=== PATIENT | female | born 1955 | race Caucasian/White ===

== ENCOUNTER 2020-06-12 12:19 | Emergency (ER) | payer MEDICARE, SELFPAY ==
[2020-06-12 12:30] VITALS: BP 118/67; PULSE 90; RESP 18; TEMP 36.6; O2SAT 97
--- NOTE | 2020-06-12 12:57 | ED.GENADULT ---
HPI - General Adult General Chief complaint: Urogenital-Female Stated complaint: Urogenital-Female Time Seen by Provider: 06/12/20 12:55 Source: patient and RN notes reviewed Mode of arrival: ambulatory Limitations: no limitations History of Present Illness HPI narrative: 65-year-old female presents with urinary complaints for the past 2 days. Dysuria consist of burning, frequency, and urgency.? Bekah reports increase symptoms of decrease urine with frequency, urgency, and burning over the past 24 hours. No treatment.? History of bladder tack on 03/23/20 and numerous UTIs. Denies fever or chills. No significant pelvic pain. No vaginal discharge.? No concerns for STDs. Exacerbating factors urinating.? Denies hematuria or vaginal bleeding. LMP hysterectomy. No flank pain. Denies nausea, vomiting, and abdominal pain.? Tolerating liquids well.? Remains active. The patient reports she have not been diagnosed with COVID-19. The patient reports she is not waiting for the results of a COVID-19 lab test. The patient reports she do not have weakness or fatigue. The patient reports she do not have a new or worsening cough or shortness of breath. Denies chest pain. The patient reports she do not have any rhinorrhea, congestion, sore throat, loss of taste, and diarrhea. Denies recent traveling. Denies concerns for COVID-19 or exposures been home with limited outdoor exposure except for essential household needs and return home. At this time, patient is not suspected of having COVID-19. Some parts of this dictation were generated by voice recognition software and may contain typographical and/or grammatical inaccuracies. Related Data Home Medications Medication Instructions Recorded Confirmed metformin 500 mg PO DAILY 06/12/20 06/12/20 simvastatin 20 mg PO DAILY 06/12/20 06/12/20 Allergies Allergy/AdvReac Type Severity Reaction Status Date / Time sulfamethoxazole AdvReac Nausea Verified 06/12/20 13:07 [From Bactrim] trimethoprim [From Bactrim] AdvReac Nausea Verified 06/12/20 13:07 Contrast Media Allergy Unknown Unknown Uncoded 06/12/20 12:40 Review of Systems Review of Systems: Narrative: CONSTITUTIONAL: Denies fever, chills, sweats. EYES: Denies visual changes, redness, discharge. ENT: Denies rhinorrhea, congestion, sore throat, otalgia. CARDIOVASCULAR: Denies chest pain, palpitations, edema. RESPIRATORY: Denies dyspnea, wheezing, cough. GASTROINTESTINAL: Denies abdominal pain, nausea, vomiting, diarrhea. GENITOURINARY: Complains of dysuria (burning, frequency, and urgency). Denies hematuria, abnormal discharge. SKIN: Denies rash or itching. MUSCULOSKELETAL: Denies acute back pain, joint pain, or myalgia. NEUROLOGIC: Denies numbness or focal weakness. PSYCHIATRIC: Denies anxiety or depression. All systems reviewed & are unremarkable except as noted in HPI and below. [facility] Past Medical History Medical History (Updated 06/13/20 @ 00:00 by [facility] Micah) Diabetes mellitus type 2 in obese History of gastroesophageal reflux (GERD) Hypercholesteremia Mitral valve prolapse Ovarian cyst Urinary tract bacterial infections Surgical History Surgical History (Updated 06/12/20 @ 13:14 by MARIJA Downing) History of bladder suspension procedure 03/23/2020 History of cholecystectomy History of hysterectomy History of knee surgery Left History of tubal ligation Family History Family History (Updated 06/12/20 @ 13:15 by MARIJA Downing) Father Alive and well Mother , Lung and kidney cancer Lung cancer Social History Social History (Updated 06/12/20 @ 13:15 by MARIJA Downing) Smoking status: Former smoker Tobacco type: cigarettes Second hand tobacco smoke exposure: No Smoking end date: 01/16/20 Alcohol intake: current Alcohol use details: occasional Substance use: never Living arrangements: with family Occupation/Education: retired Gender
== END 2020-06-12 13:10 | disposition home or self-care (01) ==
PROVIDERS: Emergency Provider Nurse Practitioner Family; PCP Nurse Practitioner Family
DX: R30.0 Dysuria (principal); Z87.891 Personal history of nicotine dependence; E11.9 Type 2 diabetes mellitus without complications; K21.9 Gastro-esophageal reflux disease without esophagitis; E78.00 Pure hypercholesterolemia, unspecified; I34.1 Nonrheumatic mitral (valve) prolapse
CPT/HCPCS: 81003; 87077; 87086; 87088; 87186; 99213; G0463

== ENCOUNTER 2021-12-27 14:59 | Emergency (ER) | payer MEDICARE, SELFPAY ==
--- NOTE | ~2021-12-27 | XR_ITS ---
EXAMINATION: XR chest 2V Exam Date/Time: 12/27/2021 16:25 CDT HISTORY: INCREASING SOB X 2 WEEKS Comparison: None available. RESULT: Lines, tubes, and devices: Cholestatic clips. Lungs and pleura: Diffuse reticulonodular opacities, likely with a component of senescent change. Bi basilar scar/atelectasis. Cardiomediastinal silhouette: Stable cardiomediastinal silhouette. Other: No acute osseous or upper abdominal finding. IMPRESSION: Pulmonary opacities may represent bronchiolitis, as can be seen with atypical infection, asthma, aspi ration, and small airways disease.. Reviewed, dictated and finalized at location K. IMPRESSION: Pulmonary opacities may represent bronchiolitis, as can be seen with atypical i nfection, asthma, aspiration, and small airways disease..
[2021-12-27 15:40] VITALS: BP 140/84; PULSE 99; RESP 20; TEMP 37.1; O2SAT 95
--- NOTE | 2021-12-27 16:24 | ED.GENADULT ---
HPI - General Adult General Chief complaint: Upper Respiratory Infection Stated complaint: Coughing, ear pain Source: patient Mode of arrival: ambulatory Limitations: no limitations History of Present Illness HPI narrative: Patient presents for evaluation of respiratory symptoms for the last week. Symptoms include shortness of breath, chest tightness, occasional nonproductive cough. She further endorses right-sided ear pain. She denies fever, nausea, vomiting, diarrhea, sore throat, left-sided otalgia. No recent sick contacts to her knowledge. She had COVID in May 2021. She received Moderna COVID vaccination in 2 boosters. She tried taking Mucinex which seemed to make her symptoms worse. She also tried taking some cold and cold medication. She has about a 20 pack year hx of smoking. She quit two years ago. No formal diagnosis of COPD or asthma. She believes her symptoms are 2/2 Gemtesa as package insert indicates that use can cause respiratory infections. Related Data Home Medications Medication Instructions Recorded Confirmed metformin 500 mg tablet mg 12/27/21 nitrofurantoin macrocrystal 50 mg mg 12/27/21 capsule simvastatin 20 mg tablet mg 12/27/21 vibegron 75 mg tablet (Gemtesa) mg 12/27/21 Allergies Allergy/AdvReac Type Severity Reaction Status Date / Time sulfamethoxazole AdvReac Nausea Verified 12/27/21 16:18 [From Bactrim] trimethoprim [From Bactrim] AdvReac Nausea Verified 12/27/21 16:18 Contrast Media Allergy Unknown Unknown Uncoded 12/27/21 16:18 Review of Systems Review of Systems: CONSTITUTIONAL: Denies fever, chills, or sweats. EYES: Denies visual changes, redness, or discharge. ENT: Denies rhinorrhea, congestion, sore throat, or otalgia. CARDIOVASCULAR: Denies chest pain, palpitations, or edema. RESPIRATORY: Reports shortness of breath, chest tightness, occasional nonproductive cough. GASTROINTESTINAL: Denies abdominal pain, nausea, vomiting, or diarrhea. GENITOURINARY: Denies dysuria or hematuria. SKIN: Denies rash or itching. MUSCULOSKELETAL: Denies back pain, joint pain, or myalgia. NEUROLOGIC: Denies headache, numbness, dizziness, or weakness. PSYCHIATRIC: Denies anxiety or depression. [facility] Past Medical History Medical History (Updated 12/27/21 @ 17:07 by ASTRID LewisP, ) Diabetes mellitus type 2 in obese History of gastroesophageal reflux (GERD) Hypercholesteremia Mitral valve prolapse Ovarian cyst Urinary tract bacterial infections Surgical History Surgical History History of bladder suspension procedure 03/23/2020 History of cholecystectomy History of hysterectomy History of knee surgery Left History of oophorectomy History of tubal ligation Family History Family History Father Alive and well Mother , Lung and kidney cancer Lung cancer Social History Social History (Updated 12/27/21 @ 16:27 by Lazaro Gomez [facility], ) Smoking packs per day: 20 Smoking cigarettes per day: 400.0 Smoking status: Former smoker Tobacco type: cigarettes Second hand tobacco smoke exposure: No Smoking end date: 01/16/20 Alcohol intake: current Alcohol use details: occasional Substance use: never Gender identity (if verbalized by the patient): Female Sexual Orientation (if Verbalized by the Patient): Straight or Heterosexual Exam Narrative: GENERAL: Well-appearing, well-nourished, and in no acute distress. HEAD: Normocephalic, atraumatic. EYES: PERRLA and EOMI. ENT: Nares clear, no rhinorrhea or epistaxis. Mucous membranes moist. Oropharynx without tonsillar hypertrophy exudate or other lesions. Bilateral TMs pearly peraza nonbulging NECK: Supple. No adenopathy or masses. No carotid bruits or JVD CHEST: Clear to auscultation. Occasional cough noted. No respiratory distress. No wheezes rales or rhon
== END 2021-12-27 17:12 | disposition home or self-care (01) ==
PROVIDERS: Emergency Provider Nurse Practitioner
DX: J18.9 Pneumonia, unspecified organism (principal); Z20.822 Contact with and (suspected) exposure to COVID-19; Z87.891 Personal history of nicotine dependence; K21.9 Gastro-esophageal reflux disease without esophagitis; E78.00 Pure hypercholesterolemia, unspecified; I34.1 Nonrheumatic mitral (valve) prolapse; E11.9 Type 2 diabetes mellitus without complications
CPT/HCPCS: 71046; 87081; 87426; 87804; 99213; C9803; G0463

== ENCOUNTER 2022-01-27 09:08 | Outpatient (CLI) | payer MEDICARE, SELFPAY ==
--- NOTE | 2022-01-27 09:30 | ECG_ITS ---
Measurements Intervals [place] Rate: 87 P: 26 DE: 154 QRS: -73 QRSD: 101 T: 32 QT: 350 QTc: 421 Interpretive Statements SINUS RHYTHM LOW QRS VOLTAGE IN PRECORDIAL LEADS [QRS DEFLECTION < 1.0 mV IN CHEST LEADS] RV CONDUCTION ABNORMALITY LEFT ANTERIOR FASCICULAR BLOCK [QRS AXIS <= -45, QR IN I, RS IN II] NO PREVIOUS ECG AVAILABLE FOR COMPARISON Electronically Signed On 01-27-2022 12:03:29 CDT by Mainor Titus M.D.
[2022-01-27 10:10] LABS: Anion Gap 11 mmol/L (8-16); Blood Urea Nitrogen 11 mg/dL (7-17); Calcium 9.7 mg/dL (8.4-10.2); Carbon Dioxide 21 mmol/L (22-30); Chloride 100 mmol/L (98-107); Estimated Glomerular Filt Rate > 60; Glucose 97 mg/dL (65-110); Potassium 4.3 mmol/L (3.4-5.0); Sodium 132 mmol/L (137-145)
== END 2022-01-27 09:09 | disposition home or self-care (01) ==
LOC: ANHSURGERY 09:16
PROVIDERS: Anesthesiology; Visit Provider Urology
DX: E78.00 Pure hypercholesterolemia, unspecified (principal); E11.9 Type 2 diabetes mellitus without complications; Z01.818 Encounter for other preprocedural examination; I45.9 Conduction disorder, unspecified; I44.4 Left anterior fascicular block
CPT/HCPCS: 36415; 80048; 87077; 87086; 87186; 93005

== ENCOUNTER 2022-02-03 00:39 | Day surgery (SDC) | payer MEDICARE, SELFPAY ==
--- NOTE | 2022-01-20 10:21 | PM.IMHP ---
H&P: HPI History of Present Illness Date/Time: 01/20/22 10:21 Chief Complaint: Vaginal bulge, incontinence Narrative: Recurrent pelvic organ prolapse. Previous cystocele repair. No longer satisfied with pessary. Stress incontinence due to intrinsic sphincter deficiency Review of Systems Review of Systems: All systems reviewed & are unremarkable except as noted in HPI and below PMFSH Past Medical History Medical History Diabetes mellitus type 2 in obese History of gastroesophageal reflux (GERD) Hypercholesteremia Mitral valve prolapse Ovarian cyst Urinary tract bacterial infections Surgical History Surgical History History of bladder suspension procedure 03/23/2020 History of cholecystectomy History of hysterectomy History of knee surgery Left History of oophorectomy History of tubal ligation Family History Family History Father Alive and well Mother , Lung and kidney cancer Lung cancer Social History Social History Smoking packs per day: 20 Smoking cigarettes per day: 400.0 Smoking status: Former smoker Tobacco type: cigarettes Second hand tobacco smoke exposure: No Smoking end date: 01/16/20 Alcohol intake: current Alcohol use details: occasional Substance use: never Gender identity (if verbalized by the patient): Female Sexual Orientation (if Verbalized by the Patient): Straight or Heterosexual Meds Home Medications and Allergies Home Medications Medication Instructions Recorded Confirmed Type albuterol sulfate 90 mcg/actuation 2 inh inhalation Q4-6H PRN 12/27/21 Rx breath activated powder shortness of breath #1 ea inhaler,sensor (Proair Digihaler) amoxicillin 875 mg-potassium 1 tablet PO Q12H #20 tabs 12/27/21 Rx clavulanate 125 mg tablet azithromycin 250 mg tablet See Rx Instructions PO .COMPLEX #6 12/27/21 Rx tabs metformin 500 mg tablet mg 12/27/21 History nitrofurantoin macrocrystal 50 mg mg 12/27/21 History capsule simvastatin 20 mg tablet mg 12/27/21 History vibegron 75 mg tablet (Gemtesa) mg 12/27/21 History Allergies Allergy/AdvReac Type Severity Reaction Status Date / Time sulfamethoxazole AdvReac Nausea Verified 12/27/21 16:18 [From Bactrim] trimethoprim [From Bactrim] AdvReac Nausea Verified 12/27/21 16:18 Contrast Media Allergy Unknown Unknown Uncoded 12/27/21 16:18 Exam Narrative: Cystocele to introitus Vaginal foreshortening Fixed urethra Assessment and Plan Assessment and plan (1) Cystocele: Status: Acute Assessment and Plan: No longer satisfied with pessary. Desires cystocele repair. Understands risks of bleeding, infection, damage to the bladder urinary tract, recurrence, dyspareunia, voiding dysfunction. Agrees to proceed (2) Intrinsic sphincter deficiency (ISD): Code(s): N36.42 - Intrinsic sphincter deficiency (ISD) Status: Acute Assessment and Plan: Will plan on injection of bulking agent. Understands the risks of bleeding, infection, lack of efficacy, retention, need for repeat procedures
--- NOTE | 2022-01-24 14:17 | PC.NURSE ---
Report to the Outpatient Waiting Room, entrance under the green pavilion located off [facility], at time _0800 on date _02/03/22 . OR Time: ___1000 . - You and your visitor will be asked to self-screen and do not enter if you have any COVID symptoms. - Only one visitor and NO children visitors are allowed at this time. - The patient visitor is requested to leave or wait in car when not with patient due to restrictions. - A mask is required within the hospital. Patients may have clear liquids (water, carbonated beverages, clear teas, apple juice) until 3 hours prior to surgery with a maximum of 20 ounces. - No food from midnight until time of surgery - Infants may have breast milk until 4 hours before surgery, infant formula 6 hours prior to surgery. - Children will be allowed to drink immediately following surgery. If applicable, please bring a bottle or sippy cup to assist with drinking. Juice, water, soda, and popsicles are readily available. For infants on formula, please bring formula the day of surgery. Pacifiers are allowed. Take the following medications with a SIP of water the morning of surgery: ___INHALER IF NEEDED Medications to discontinue per physician ____ALL VITAMINS AND SUPPLEMENTS 3 DAYS PRE OP Date to take last dose____01/30/22 Please no make-up, nail guatemalan, hairspray, perfume, deodorant, or body powder the day of surgery. No jewelry (including any body piercings) or valuables the day of surgery, leave them at home. Please take a shower or bath the night before, or the morning of, surgery with an antibacterial soap. Wear comfortable, loose fitting clothing. Children are encouraged to wear pajamas. - Jewelry must be removed prior to entering the operating room. Rings and piercings that are not removed may be cut off. - The hospital will not accept responsibility for valuables. - Please leave all valuables, including medications, at home the day of surgery. If you are going home after surgery, a licensed driver helper must drive you home. - NO public transportation without another adult. - We recommend that an adult stay with you for 24 hours following discharge. - We also recommend that you do not drive, make important decision, drink alcoholic beverages, or take any drugs that were not prescribed by your health care provider for at least 24 hours after your discharge time. For Pediatric surgeries, we recommend two adults accompany the child home (only one inside the building at this time). Follow any additional instructions given to you from your surgeon. If you or anyone in your household have experienced Covid symptoms in the past week, please notify your surgeon or the nurse liaison at the phone number below for possible testing. Telephone instructions given to ___PATIENT and asked if any additional questions and then verbalized understanding. Patient advised to call surgeon office or pre surgery nurse liaison [phone] if any additional questions.
[2022-01-24 14:33] VITALS: BMI 29.8
--- NOTE | 2022-02-02 14:03 | WPDANESEPPF ---
Anes - Initial Pre Proc Eval Procedure: Operation Date: 02/03/22 09:45 Proposed Procedures p Cystocele Repair with Bulkamid Injection - Rodolfo Roa MD Date/Time: 02/02/22 14:03 Surgeon: Rodolfo Roa MD Pre Op Diagnosis: Cystocele, Intrinsic Sphincter Deficiency Patient Data Age: 67 Gender: F Height: 1.68 m Weight: 83.95 kg Allergies Allergy/AdvReac Type Severity Reaction Status Date / Time sulfamethoxazole AdvReac Intermediate Nausea Verified 02/03/22 08:27 [From Bactrim] trimethoprim [From Bactrim] AdvReac Intermediate Nausea Verified 02/03/22 08:27 Contrast Media Allergy Intermediate Rash Uncoded 02/03/22 08:27 Home Medications Medication Instructions Recorded Confirmed Type albuterol sulfate 90 mcg/actuation 2 inh inhalation Q4-6H PRN 12/27/21 02/03/22 Rx breath activated powder shortness of breath #1 ea inhaler,sensor (Proair Digihaler) metformin 500 mg tablet 500 mg PO DAILY 12/27/21 02/03/22 History nitrofurantoin macrocrystal 50 mg 50 mg PO EVERY OTHER DAY 12/27/21 01/24/22 History capsule simvastatin 20 mg tablet 20 mg PO DAILY 12/27/21 02/03/22 History acetaminophen 500 mg capsule 500 mg PO Q6H PRN Pain 01/24/22 02/03/22 History ascorbic acid (vitamin C) 100 mg 100 mg PO BID 01/24/22 02/03/22 History tablet calcium carbonate 600 mg-vitamin 1 tablet PO DAILY 01/24/22 02/03/22 History D3 10 mcg (400 unit) tablet (Calcium 600 + D(3)) promethazine-DM 6.25 mg-15 mg/5 mL 5 ml PO TID 01/24/22 02/03/22 History oral syrup Patient hx anesthesia problems: none Family hx anesthesia problems: none Results Review: All pre-operative results and documents have been reviewed as part of the pre-operative evaluation. [facility] Past Medical History Medical History (Updated 02/02/22 @ 14:04 by Peewee Cote MD) Diabetes mellitus type 2 in obese History of gastroesophageal reflux (GERD) Hypercholesteremia Mitral valve prolapse Obesity Ovarian cyst Urinary tract bacterial infections Surgical History Surgical History History of bladder suspension procedure 03/23/2020 History of cholecystectomy History of hysterectomy History of knee surgery Left History of oophorectomy History of tubal ligation Family History Family History Father Alive and well Mother , Lung and kidney cancer Lung cancer Social History Social History Smoking packs per day: 0.5 Smoking cigarettes per day: 10.0 Years smoked: 25 Smoking pack-years: 12.50 Smoking status: Former smoker Tobacco type: cigarettes Second hand tobacco smoke exposure: No Smoking end date: 01/16/20 Alcohol intake: current Alcohol use details: occasional Substance use: never Living arrangements: alone Gender identity (if verbalized by the patient): Female Sexual Orientation (if Verbalized by the Patient): Straight or Heterosexual Spiritual care concerns: No Anes - Eval Final PreProcedure Day of Procedure 02/02/22 14:03 Patient weight: obese Heart: regular rate and rhythm Lungs: clear to auscultation and normal air movement Airway: Mallampati scale class II Neurological: alert and oriented Last oral intake: >/= 8 hours ASA classification: III Emergent: no Anesthetic plan: proceed Anesthesia type and monitoring: general LMA Results Review: All pre-operative results and documents have been reviewed as part of the pre-operative evaluation. Informed Consent: The patient's anesthetic plan and its attendant risks and benefits were discussed with the patient/family/POA. Questions were solicited and answers provided to the satisfaction of the patient/family/POA.
[2022-02-03] VITALS (9 sets, daily range): BP systolic 115–155; BP diastolic 51–82; PULSE 82–100; RESP 15–21; TEMP 36.6–36.9; O2SAT 93–100
--- NOTE | 2022-02-03 07:14 | WPDHPUPDATE1 ---
History and Physical Update Update Date/Time: 02/03/22 07:14 History and Physical has been reviewed, including an updated exam of the patient. There are NO changes in the patient's condition. Risks, benefits, and alternatives have been discussed and questions answered. Patient agrees to proceed with procedure.
[2022-02-03 08:43] LABS: Glucose Point of Care 112 mg/dl (65-105)
[2022-02-03] MEDS: LACTATED RINGERS 1,000 ML 30 ML IV CONT ×2 (08:43→11:11)
[2022-02-03] MEDS: ceFAZolin 2 GM/D5W 50 ML 2 GM/50 ML BAG IVPB (09:39)
[2022-02-03] MEDS: BUPIVACAINE/EPINEPHRINE 0.25% 50 ML VIAL 30 ML INFILTRATE (10:09)
[2022-02-03 10:48] LABS: Glucose Point of Care 111 mg/dl (65-105)
--- NOTE | 2022-02-03 10:58 | P.OP_ITS ---
Procedure Note - Detailed Date of Procedure 02/03/22 Pre-op Diagnosis Cystocele, Intrinsic Sphincter Deficiency Post-op Diagnosis Same Procedure Performed Cystocele repair Injection of urethral bulking material Surgeon Rodolfo Roa MD Anesthesia General Indications This 1 recurrent cystocele after previous prolapse surgery. She also has a fixed urethra and stress incontinence. She presents for a cystocele repair. She understands risks of bleeding, infection, damage to the urinary tract, recurrence of prolapse, persistent or recurrent stress incontinence, obstructive voiding, dyspareunia. She agrees to proceed Findings Cystocele to the introitus. Significant scarring of sub urethra and anterior vaginal wall Description of Procedure He has correctly identified. Informed consent obtained. She from the operating room. She was given general anesthesia. She was placed in dorsal thigh position. She was prepped and draped in a sterile fashion. Time-out performed. I placed a [place] retractor. I placed a Flores catheter. She had a cystocele to the introitus. She had a fixed urethra. There was significant scarring. I grasped the cystocele with Allis clamps. I infiltrated subcutaneou s tissues with local. I made a midline vaginal incision. I dissected the mucosa off the underlying fascial layers. I did this laterally then back to the apex. I then performed a standard plication cystocele repair using 0 Vicryl suture. This reduced the cystocele. I took great care not to injure the bladder. I then cut excess vaginal mucosa. I closed the vaginal [place] with a running 2 0 Vicryl suture. There was good support to the cystocele. There is no significant rectocele. I then performed cystoscopy. She had mild trabeculations. There is no surgical artifact in the bladder urethra there is no sign of any bladder injury. Both ureters were seen to excrete clear yellow urine. There were no tumors or other abnormalities in the bladder. I then turned my attention to the bulking agent. Again she had significant scarring to urethra. I chose an area 2 cm proximal to the bladder neck. I injected the bulking agent circumferentially forming 5-6 pillows. I used 1-1/2 syringe. There was good bulking effect, but the tissues were scarred and did have some resistance to excepting the bulking material Her bladder was left partially full. She was awakened and transferred to the PACU in stable condition Estimated Blood Loss 10 Drains No Packing No Pathology None sent Complications No immediate complications Condition Stable Disposition PACU
[2022-02-03] MEDS: oxyCODONE HCL (*CRX) 5 MG TAB IR PO (12:36)
--- NOTE | 2022-02-03 13:53 | SUR.PHASEII ---
1230 VOIDED X 1.
== END 2022-02-03 13:10 | disposition home or self-care (01) ==
PROVIDERS: Visit Provider Urology
PROC: (CPT 57240; principal; 2022-02-03 09:45)
DX: N36.42 Intrinsic sphincter deficiency (ISD) (principal); N39.3 Stress incontinence (female) (male); N81.10 Cystocele, unspecified; E11.9 Type 2 diabetes mellitus without complications; K21.9 Gastro-esophageal reflux disease without esophagitis; E78.00 Pure hypercholesterolemia, unspecified; E66.9 Obesity, unspecified; Z68.30 Body mass index [BMI] 30.0-30.9, adult
CPT/HCPCS: 51715; 57240; 36415; 80048; 82948; 87077; 87086; 87186; 93005; A9270; J0690; J2250; J2405; J2704; J3010; J7030; J7120; L8606

== ENCOUNTER 2022-06-05 09:45 | Emergency (ER) | payer MEDICARE, SELFPAY ==
--- NOTE | ~2022-06-05 | XR_ITS ---
EXAMINATION: XR chest 2V DATE: 06/05/2022 11:49 INDICATION: Bibasilar crackles TECHNIQUE: frontal and lateral views of the chest were obtained. COMPARISON: Chest radiograph dated 12/27/2021 and 09/29/2017 FINDINGS: Similar pattern of airspace opacities in the bilateral lower lung zones due to significant part to pr ominent anterior pericardial fat pads. There are also coarse reticular mild patchy airspace opacities along both lung bases with relatively similar appearance. No pleural effusion or pneumothorax. Borde rline heart size accounting for AP technique. Mild thoracic levoscoliosis with mild spondylosis. IMPRESSION: 1. Relatively stable appearance of interstitial and airspace opacities in the bilateral lower lung zo iman most likely either atelectasis/scarring or other chronic interstitial lung disease. Difficult to exclude superimposed pulmonary edema or pneumonia. Reviewed, dictated and finalized at location A. [employer]ING [employer]INTAINER IMPRESSION: 1. Relatively stable appearance of interstitial and airspace opacities in the b ilateral lower lung zones most likely either atelectasis/scarring or other orchestrator abe interstitial lung disease. Difficult to exclude superimposed pulmonary sada a or pneumonia.
[2022-06-05 09:54] VITALS: BP 95/53; PULSE 90; RESP 24; TEMP 35.8; O2SAT 95
--- NOTE | 2022-06-05 12:02 | ED.GENADULT ---
HPI - General Adult General Chief complaint: Upper Respiratory Infection Stated complaint: cold flu Time Seen by Provider: 06/05/22 11:32 Source: patient, RN notes reviewed and old records reviewed Mode of arrival: ambulatory Limitations: no limitations History of Present Illness HPI narrative: 67-year-old female presents to [facility] with complaints of cough, congestion for the past 5 days with some shortness of breath. Patient denies any fever has been taking Delsym, Mucinex, Advil cold and Sinus for her symptoms. Patient reports she has had flu shot and COVID vaccinations and has also her pneumo shot. Patient does have an inhaler at home which she has been using for the shortness of breath. MD complaint: cough, shortness of breath, congestion Onset (ago): day(s) (5) Treatments prior to arrival: other (Delsym, Mucinex, Advil cold and sinus and inhaler) Related Data Home Medications Medication Instructions Recorded Confirmed metformin 500 mg tablet 500 mg PO DAILY 12/27/21 02/03/22 simvastatin 20 mg tablet 20 mg PO DAILY 12/27/21 02/03/22 acetaminophen 500 mg capsule 500 mg PO Q6H PRN Pain 01/24/22 02/03/22 ascorbic acid (vitamin C) 100 mg 100 mg PO BID 01/24/22 02/03/22 tablet calcium carbonate 600 mg-vitamin 1 tablet PO DAILY 01/24/22 02/03/22 D3 10 mcg (400 unit) tablet (Calcium 600 + D(3)) promethazine-DM 6.25 mg-15 mg/5 mL 5 ml PO TID 01/24/22 02/03/22 oral syrup metoprolol succinate 25 mg mg PO 06/05/22 tablet,extended release 24 hr Allergies Allergy/AdvReac Type Severity Reaction Status Date / Time sulfamethoxazole AdvReac Intermediate Nausea Verified 02/03/22 08:27 [From Bactrim] trimethoprim [From Bactrim] AdvReac Intermediate Nausea Verified 02/03/22 08:27 Contrast Media Allergy Intermediate Rash Uncoded 02/03/22 08:27 Review of Systems Review of Systems: CONSTITUTIONAL: Denies fever, chills, or sweats. EYES: Denies visual changes, redness, or discharge. ENT: Reports some rhinorrhea, congestion,no sore throat, or otalgia. CARDIOVASCULAR: Denies chest pain, palpitations, or edema. RESPIRATORY: Reports cough and some dyspnea. GASTROINTESTINAL: Denies abdominal pain, nausea, vomiting, or diarrhea. GENITOURINARY: Denies dysuria or hematuria. SKIN: Denies rash or itching. MUSCULOSKELETAL: Denies back pain, joint pain, or myalgia. NEUROLOGIC: Denies headache, numbness, or weakness. PSYCHIATRIC: Denies anxiety or depression. All systems reviewed & are unremarkable except as noted in HPI and below PMFSH Past Medical History Medical History Diabetes mellitus type 2 in obese History of gastroesophageal reflux (GERD) Hypercholesteremia Mitral valve prolapse Obesity Ovarian cyst Urinary tract bacterial infections Surgical History Surgical History History of bladder suspension procedure 03/23/2020 History of cholecystectomy History of hysterectomy History of knee surgery Left History of oophorectomy History of tubal ligation Family History Family History Father Alive and well Mother , Lung and kidney cancer Lung cancer Social History Social History Smoking packs per day: 0.5 Smoking cigarettes per day: 10.0 Years smoked: 25 Smoking pack-years: 12.50 Smoking status: Former smoker Tobacco type: cigarettes Second hand tobacco smoke exposure: No Smoking end date: 01/16/20 Alcohol intake: current Alcohol use details: occasional Substance use: never Gender identity (if verbalized by the patient): Female Sexual Orientation (if Verbalized by the Patient): Straight or Heterosexual Spiritual care concerns: No Comments At time of signature, agree with nursing past medical, surgical, social and family history. There is no relev
--- NOTE | 2022-06-05 12:12 | ED.URI ---
HPI - URI/Sore Throat General Chief Complaint: Upper Respiratory Infection Stated Complaint: cold flu Time Seen by Provider: 06/05/22 11:32 Source: patient, RN notes reviewed and old records reviewed Mode of arrival: ambulatory Limitations: no limitations History of Present Illness HPI Narrative: 67-year-old female [facility] with complaints of cough, congestion for the past 4 days with some shortness of breath, patient denies any fever has been taking Delsym Mucinex Advil cold and Sinus and patient reports she has had flu shot and COVID vaccinations and has also her shot does have an inhaler at home which she has been using for the usual MD elicited complaint: cough, rhinorrhea and nasal congestion Related Data Home Medications Medication Instructions Recorded Confirmed metformin 500 mg tablet 500 mg PO DAILY 12/27/21 02/03/22 simvastatin 20 mg tablet 20 mg PO DAILY 12/27/21 02/03/22 acetaminophen 500 mg capsule 500 mg PO Q6H PRN Pain 01/24/22 02/03/22 ascorbic acid (vitamin C) 100 mg 100 mg PO BID 01/24/22 02/03/22 tablet calcium carbonate 600 mg-vitamin 1 tablet PO DAILY 01/24/22 02/03/22 D3 10 mcg (400 unit) tablet (Calcium 600 + D(3)) promethazine-DM 6.25 mg-15 mg/5 mL 5 ml PO TID 01/24/22 02/03/22 oral syrup metoprolol succinate 25 mg mg PO 06/05/22 tablet,extended release 24 hr Allergies Allergy/AdvReac Type Severity Reaction Status Date / Time sulfamethoxazole AdvReac Intermediate Nausea Verified 02/03/22 08:27 [From Bactrim] trimethoprim [From Bactrim] AdvReac Intermediate Nausea Verified 02/03/22 08:27 Contrast Media Allergy Intermediate Rash Uncoded 02/03/22 08:27 [facility] Past Medical History Medical History Diabetes mellitus type 2 in obese History of gastroesophageal reflux (GERD) Hypercholesteremia Mitral valve prolapse Obesity Ovarian cyst Urinary tract bacterial infections Surgical History Surgical History History of bladder suspension procedure 03/23/2020 History of cholecystectomy History of hysterectomy History of knee surgery Left History of oophorectomy History of tubal ligation Family History Family History Father Alive and well Mother , Lung and kidney cancer Lung cancer Social History Social History Smoking packs per day: 0.5 Smoking cigarettes per day: 10.0 Years smoked: 25 Smoking pack-years: 12.50 Smoking status: Former smoker Tobacco type: cigarettes Second hand tobacco smoke exposure: No Smoking end date: 01/16/20 Alcohol intake: current Alcohol use details: occasional Substance use: never Gender identity (if verbalized by the patient): Female Sexual Orientation (if Verbalized by the Patient): Straight or Heterosexual Spiritual care concerns: No Course Vital Signs Vital signs: Vital Signs Temperature 35.8 C L 06/05/22 09:54 Pulse Rate 90 06/05/22 09:54 Respiratory Rate 24 H 06/05/22 09:54 Blood Pressure 95/53 L 06/05/22 09:54 Pulse Oximetry 95 06/05/22 09:54 Oxygen Delivery Room Air 06/05/22 09:54 Temperature 35.8 C L 06/05/22 09:54 Pulse Rate 90 06/05/22 09:54 Respiratory Rate 24 H 06/05/22 09:54 Blood Pressure 95/53 L 06/05/22 09:54 Pulse Oximetry 95 06/05/22 09:54 Oxygen Delivery Room Air 06/05/22 09:54 Discharge Plan Discharge Clinical Impression: Pneumonia Patient Disposition: Home, Self-Care Condition: Stable Instructions: Antibiotic Form Additional Instructions: Increase fluids especially juices and water [id number] cough and cold medicine of your choice for your symptoms Zyrtec Claritin or Yaritza daily nasal congestion CC +a medicine such as Delsym Tylenol or ibuprofen for any fever pain Continue yo
== END 2022-06-05 12:31 | disposition home or self-care (01) ==
PROVIDERS: Emergency Provider Registered Nurse
DX: J18.9 Pneumonia, unspecified organism (principal); Z87.891 Personal history of nicotine dependence; E11.9 Type 2 diabetes mellitus without complications; K21.9 Gastro-esophageal reflux disease without esophagitis; E78.00 Pure hypercholesterolemia, unspecified; I34.1 Nonrheumatic mitral (valve) prolapse; E66.9 Obesity, unspecified
CPT/HCPCS: 71046; 99213; G0463

== ENCOUNTER 2022-06-13 08:53 | Emergency (ER) | payer MEDICARE, SELFPAY ==
--- NOTE | ~2022-06-13 | XR_ITS ---
Clinical Indication: Crackles, pneumonia PA and lateral views of the chest: Comparison: 06/05/2022 Findings: Probable chronic bibasilar interstitial disease present. No definite acute abnormality. Ca rdiomediastinal silhouette is within normal limits. Bones and soft tissues are unremarkable. Impression: Probable chronic bibasilar interstitial disease. Reviewed, dictated and finalized at location . UP EDITOR Impression: Probable chronic bibasilar interstitial disease.
[2022-06-13 09:13] VITALS: BP 138/68; PULSE 85; RESP 20; TEMP 36.3; O2SAT 93
--- NOTE | 2022-06-13 09:39 | ED.URI ---
HPI - URI/Sore Throat General Chief Complaint: Upper Respiratory Infection Stated Complaint: pnuemonia Source: patient Mode of arrival: ambulatory Limitations: no limitations History of Present Illness HPI Narrative: 67 y/o female with hx DM presented for c/o cough and shortness of breath for over 12 days. Cough is nonproductive. Patient had presented with the same complaint and was treated for bibasilar pneumonia on 06/05/22 with azithromycin and prednisone. States she has some improvement in symptoms. Per notes was prescribed albuterol 06/06/22. States inhaler does not help despite taking it every 6 hours. She was advised to go to the ER for worsening symptoms. She denies chest pain, palpitations, n/v/d/f/c. Not taking additional medication for symptoms. She is vaccinated for covid and pna. Former smoker quit 3 years ago. Denies dx COPD. Related Data Home Medications Medication Instructions Recorded Confirmed metformin 500 mg tablet 500 mg PO DAILY 12/27/21 06/13/22 simvastatin 20 mg tablet 20 mg PO DAILY 12/27/21 06/13/22 acetaminophen 500 mg capsule 500 mg PO Q6H PRN Pain 01/24/22 06/13/22 ascorbic acid (vitamin C) 100 mg 100 mg PO BID 01/24/22 06/13/22 tablet calcium carbonate 600 mg-vitamin 1 tablet PO BID 01/24/22 06/13/22 D3 10 mcg (400 unit) tablet (Calcium 600 + D(3)) metoprolol succinate 25 mg 25 mg PO DAILY 06/05/22 06/13/22 tablet,extended release 24 hr albuterol sulfate 90 mcg/actuation 2 puff inhalation Q4-6H PRN 06/13/22 06/13/22 aerosol inhaler Shortness Of Breath Allergies Allergy/AdvReac Type Severity Reaction Status Date / Time sulfamethoxazole Allergy Intermediate Rash Verified 06/13/22 09:36 [From Bactrim] trimethoprim [From Bactrim] Allergy Intermediate Rash Verified 06/13/22 09:36 iohexol Allergy Rash Verified 06/13/22 09:36 [From contrast - CT, X-RAY] Review of Systems Review of Systems: CONSTITUTIONAL: Denies body aches, fever, chills, or sweats. EYES: Denies visual changes, redness, or discharge. ENT: Denies rhinorrhea, congestion, sore throat, or otalgia. CARDIOVASCULAR: Denies chest pain, palpitations, or edema. RESPIRATORY: Reports cough, sob, wheezing. GASTROINTESTINAL: Denies abdominal pain, nausea, vomiting, or diarrhea. GENITOURINARY: Denies dysuria or hematuria. SKIN: Denies rash, itching, or wounds. MUSCULOSKELETAL: Denies back pain, joint pain, or myalgia. NEUROLOGIC: Denies headache, numbness, tingling, or weakness. PSYCH: Denies depression or anxiety. All systems reviewed & are unremarkable except as noted in HPI and below PMFSH Past Medical History Medical History Diabetes mellitus type 2 in obese History of gastroesophageal reflux (GERD) Hypercholesteremia Mitral valve prolapse Obesity Ovarian cyst Urinary tract bacterial infections Surgical History Surgical History History of bladder suspension procedure 03/23/2020 History of cholecystectomy History of hysterectomy History of knee surgery Left History of oophorectomy History of tubal ligation Family History Family History Father Alive and well Mother , Lung and kidney cancer Lung cancer Social History Social History Smoking packs per day: 0.5 Smoking cigarettes per day: 10.0 Years smoked: 25 Smoking pack-years: 12.50 Smoking status: Former smoker Tobacco type: cigarettes Second hand tobacco smoke exposure: No Smoking end date: 01/16/20 Alcohol intake: current Alcohol use details: occasional Substance use: never Gender identity (if verbalized by the patient): Female Sexual Orientation (if Verbalized by the Patient): Straight or Heterosexual Spiritual care concerns: No Comments At time of signature, I have reviewe
== END 2022-06-13 10:24 | disposition home or self-care (01) ==
PROVIDERS: Emergency Provider Nurse Practitioner Family
DX: R06.02 Shortness of breath (principal); R05.1 Acute cough; Z87.891 Personal history of nicotine dependence; K21.9 Gastro-esophageal reflux disease without esophagitis; E78.00 Pure hypercholesterolemia, unspecified; I34.1 Nonrheumatic mitral (valve) prolapse; E11.9 Type 2 diabetes mellitus without complications; E66.9 Obesity, unspecified; Z68.30 Body mass index [BMI] 30.0-30.9, adult; Z79.4 Long term (current) use of insulin
CPT/HCPCS: 71046; 99213; G0463